=== PATIENT | female | born 1985 | race Caucasian/White ===

== ENCOUNTER 2024-03-12 09:30 | Outpatient (CLI) | payer OTHER | END 2024-03-12 09:31 | disposition home or self-care (01) | LOC: PET 09:30 | PROVIDERS: ATTEND Internal Medicine Hematology & Oncology | DX: C56.1 Malignant neoplasm of right ovary (principal); R19.00 Intra-abdominal and pelvic swelling, mass and lump, unspecified site; Z96.89 Presence of other specified functional implants | CPT/HCPCS: 78815; A9552 ==

== ENCOUNTER 2024-07-03 08:00 | Outpatient (CLI) | payer OTHER | END 2024-07-03 08:01 | disposition home or self-care (01) | LOC: PET 08:00 | PROVIDERS: ATTEND Internal Medicine Hematology & Oncology | DX: C56.1 Malignant neoplasm of right ovary (principal); R19.00 Intra-abdominal and pelvic swelling, mass and lump, unspecified site; Z96.89 Presence of other specified functional implants | CPT/HCPCS: 78815; A9552 ==

== ENCOUNTER → 2025-03-31 | Day surgery (SDC) | payer OTHER ==
[~2025-03-31] MED LIST: Lidocaine 1% PF 5 ML VIAL ONE; Lidocaine 1% w/Epinephrine 1:100K 20 ML VIAL ONE; Sodium Bicarbonate 2.5 MEQ/5 ML SDV ONE
[2025-03-31 15:41] VITALS: BP 140/89
== END ==
LOC: ULT 12:09
PROVIDERS: ATTEND Internal Medicine Hematology & Oncology
PROC: 07BJ3ZX Excision of Left Inguinal Lymphatic, Percutaneous Approach, Diagnostic (ICD-10-PCS; principal; 2025-03-31)
DX: R59.0 Localized enlarged lymph nodes (principal); C56.1 Malignant neoplasm of right ovary
CPT/HCPCS: 38505; 76942; 88184; 88307; 88342

== ENCOUNTER 2025-04-23 13:40 | Outpatient (CLI) | payer OTHER | END 2025-04-23 13:41 | disposition home or self-care (01) | LOC: RAD 13:40 | PROVIDERS: ATTEND Internal Medicine Hematology & Oncology | DX: C56.1 Malignant neoplasm of right ovary (principal) | CPT/HCPCS: 36598; J1642; Q9967 ==

== ENCOUNTER 2025-06-18 08:00 | Outpatient (CLI) | payer OTHER | END 2025-06-18 08:01 | disposition home or self-care (01) | LOC: PET 08:00 | PROVIDERS: ATTEND Internal Medicine Hematology & Oncology | DX: C56.1 Malignant neoplasm of right ovary (principal); M79.89 Other specified soft tissue disorders | CPT/HCPCS: 78815; A9552 ==